=== PATIENT | male | born 1945 | race Caucasian/White ===

== ENCOUNTER 2021-02-24 13:46 | Emergency (ER) | payer MEDICARE, BC ==
[~2021-02-24] VITALS: Ht 165.1 cm; Wt 123.7 kg
[2021-02-24 13:47] VITALS: BP 0/0
--- NOTE | 2021-02-24 13:58 | PHYS DOC ---
Adult General Chief Complaint Chief Complaint: CPR/FULL ARREST HPI HPI Patient is a 75-year-old male presenting for cardiac arrest via EMS. Medical history is unknown. Patient was reportedly at [facility] and suffered a witnessed cardiac arrest. CPR was started by by standards and EMS was called and on scene and less than 10 minutes. Tony CPR machine applied after cardiac rhythm analyzed showing asystole, no pulses were present and so, Tony machine chest compressions were started and patient rushed emergently to our ER for evaluation. We had no known history on the patient, he was not with any family members or individuals who know anything about his past medical history nor CODE STATUS Review of Systems Review of Systems Unobtainable due to ongoing CPR in progress Physical Exam Physical Exam Constitutional: Ill-appearing with CPR in Tony machine placed on chest actively applying chest compressions HEENT: Head: Normocephalic and atraumatic. TMs clear, no hemotympanum Conjunctivae normal. Pupils are equal, round, with minimal reactivity to light Oropharynx is clear and dry, LMA in place No hematomas or lacerations or abrasions to face or scalp OP clear, no blood, no malocclusion, dentition intact Nares clear, no nasal septal hematoma Midface stable Neck: C-spine midline without palpable abnormalities or step-offs Cardiovascular: Asystole, Tony CPR machine in place in adequate position actively applying chest compressions on arrival, no flail chest Pulmonary/Chest: Mechanical breath sounds present, crackles diffusely with rales present in bilateral lung lobes Abdominal: Soft. Bowel sounds are normal. Pt exhibits no distension. There is no obvious tenderness. Musculoskeletal: No bony tenderness to extremities, no obvious visible nor palpable deformities, passive range of motion of extremities intact with no purposeful movements noted Chest wall stable Pelvis stable No vertebral spine visible or palpable stepoffs or other noted abnormalities Neurological: Unable to fully assess, GCS 3, LMA in place without sedation No purposeful movements No pupillary reflex As mention, pupils equal but minimally responsive to light Minimal response with painful stimulation to soles of feet Skin: Skin is cold and dry. No abrasions, no lacerations Psychiatric: Unable to accurately assess Current Patient Data Vital Signs Vital Signs Date Time Temp Pulse Resp B/P (MAP) Pulse Ox O2 Delivery O2 Flow Rate FiO2 02/24/21 13:47 97.2 0 12 0/0 (0) Bag Valve Mask 02/24/21 15:56 100 Vital Signs Date Time Temp Pulse Resp B/P (MAP) Pulse Ox O2 Delivery O2 Flow Rate FiO2 02/24/21 15:56 100 02/24/21 13:47 97.2 0 12 0/0 (0) Bag Valve Mask Lab Results Laboratory Tests Test 02/24/21 13:54 Glucose (Fingerstick) 106 mg/dL (70-99) H EKG EKG EKG obtained after ROSC and interpreted by myself at 1453 hrs. as supraventricular rhythm with a rate 87, prolonged QRS at 126, prolonged QTC at 501, left axis deviation, Q waves present in leads III and aVF consistent with prior inferior wall infarct, no STEMI Radiology/Procedures Radiology/Procedures AP chest x-ray HISTORY: Cardiac arrest with return of spontaneous circulation. FINDINGS: Marked cardiomegaly versus presence of a pericardial effusion. Calcified plaque aortic arch and tortuosity. No pneumothorax. Diffuse pulmonary interstitial and alveolar infiltrates likely edema and prominence of the pulmonary vasculature from congestion. IMPRESSION: Marked cardiomegaly versus presence of a large pericardial effusion. Pulmonary vascular congestion and pulmonary edema. No pneumothorax. Electronically signed by: Yonny Asencio MD (02/24/2021 3:11 PM) [id number] ///////////////////// AP chest x-ray COMPARISON: Chest x-ray February 24, 2021. HISTORY: Status post intubation for respiratory failure and recent cardiac arrest. FINDINGS: Endotracheal tube extends past the vidhi 2 cm into the right mainstem bronchus should be withdrawn 4 cm of the distal trachea. Cardiomegaly stable. Aortic arch calcified plaque again noted. Mild improved aeration with decreased infiltrates. No pneumothorax. No pleural effusions. IMPRESSION: Mild improvement of the pulmonary infiltrates. Endotracheal intubation, endotracheal tube passes into the right mainstem bronchus 2 cm distal of the vidhi, the tube should be withdrawn 4 cm for the tip to terminate at the trachea for optimal ventilation. ///////////////// Exam: Chest one view INDICATION: CPR, IJ placement attempt TECHNIQUE: Frontal view of the chest Comparisons: 02/24/2021 FINDINGS: Endotracheal tube with tip approximately 1 cm above the vidhi. Enteric tube traverses below the diaphragm distal extent not visualized. Heart is mildly enlarged. Pulmonary vessels are within normal limits. Mild hazy opacity lung bases bilaterally appear. No pleural effusion. IMPRESSION: Lines and tubes described above. No pneumothorax. Electronically signed by: Carole Matos MD (02/24/2021 5:35 PM) [facility] Heart Score C/O Chest Pain: N/A HEART Score for Chest Pain: HEART Score for Chest Pain Response (Comments) Value History Highly Suspicious 2 ECG Nonspecific Repolarizatio 1 Age > 65 2 Risk Factors >3 Risk Factors or Hx CAD 2 Troponin >3 x Normal Limit 2 Total 9 Risk Factors: Risk Factors: DM, Current or recent (<one month) smoker, HTN, HLP, family history of CAD, obesity. Risk Scores: Risk Factors: DM, Current or recent (<one month) smoker, HTN, HLP, family history of CAD, obesity. Course & Med Decision Making Course & Med Decision Making Patient pulseless on arrival with asystole on immediate pulse check, CPR ensued Large bore peripheral IV access x2 and x2 tibial IO obtained. Calcium, sodium bicarb, and epinephrine administered with subsequent 1 L IV fluid bolus Please review code sheet for official record of the events. Patient was found on subsequent pulse check to be in pulseless V. tach, a 200 J unsynchronized defibrillation improved rhythm to a supraventricular rhythm with pulses present Patient had issues with blood pressure and heart rate, subsequent pushes of epinephrine and short time being paced were required. Patient did become pulseless and arrest 2 additional times while in ER ROSC was finally obtained, epinephrine drip started with improvement of hemodynamic status. Decision made to exchange LMA for ETT. This was performed by myself on first attempt without complications and under 20 seconds. Repeat chest x-ray unremarkable Bedside ultrasound performed and unremarkable for pericardial effusion. Subsequent ER work-up obtained, [place] catheter placed X2 attempts were made to place a central venous line, patient had x2 attempts to right femoral vein both ending up and kinked guidewires and catheters placed in unsatisfactory position. Hemostasis achieved with direct pressure without any obvious abnormalities noted X1 attempt to place a central venous line in right internal jugular performed but called off due to morbid condition of patient and difficulty definitively finding and cannulating vein with certainty. Repeat chest x-ray obtained showing no pneumothorax Contact was finally made with patient son whom patient lives with. He provided a wealth of past medical history. Patient has numerous comorbid conditions such as type 2 diabetes mellitus, history of CVA, hypertension, hypercholesterol and alcohol dependence drinking 1 pint of vodka daily Son was not with father at time of cardiac collapse at [facility]. He is unsure of last alcoholic drink but thinks it was last prior. He reports patient has had increased shortness of breath over past month and was scheduled to see PCP whom he had not seen in months this upcoming week Also reports for past x3 days father has been having visual hallucinations. Son reports that patient has had diagnosis of "alcohol induced dementia" I reviewed entirety of ER work-up, findings and interventions so far. Son understands critical situation and poor prognosis. He understands amount of time patient spent anoxic and in asystole that has poor prognosis for meaningful recovery. Son wants him to be DNR status I discussed my failed attempts at placing a central venous line, son does not want any more invasive interventions such as central line access at this time. He is amenable for transfer to [facility] ICU for higher acuity of care I contacted hospitalist and discussed need for transfer, Dr. Lopez accepted patient under his care and agreed to current work-up and plan of care going forward. Patient son updated on acceptance for transfer to [facility]. All questions and concerns addressed prior to transport Prior to hospital transfer, pulm/crit care services discussed potential need for CTA chest prior to transfer to evaluate suspect pericardial effusion and need fo r emergent cath/surgical intervention. I discussed my bedside ultrasound finding negative for significant fluid and decision was made to defer until transfer to accepting facility for this to be performed in urgent but not emergent fashion. Decision for antibiotics will be determined on arrival to transferring facility. No COVID-19 contacts or concerns per son and so, this patient was not swabbed Critical Care Time This patient required critical care. Due to the fact that the patient required a significant amount of one on one physician - patient contact time, ordering and review of studies, arranging urgent treatment with development of a management plan, evaluation of patients response to treatment with frequent reassessments, and discussions with other providers this patient required 90 minutes of critical care time. Critical care time was indicated due to the inherent insta bility and/or potential for instability in this patient. The critical care time that is allocated to this patient is above and beyond any time spent on any other billable procedures performed on this patient. Dragon Disclaimer Dragon Disclaimer This electronic medical record was generated, in whole or in part, using a voice recognition dictation system. Central Line Central Line : Central Line Lumen: triple Central Line Procedure: sterile drapes applied Central Line Postion: internal jugular (R), femoral (R) Complications: Unsuccessful Progress Patient had x2 attempts at placing right femoral central venous line that was ultrasound-guided. Area was draped in sterile procedure and adequate sterile technique performed. Patient was prepped adequately, draped and using sterile ultrasound right femoral central vein identified, vein was cannulated and Salinger technique was performed. Nonetheless, when attempting to slide central venous catheter to complete procedure, guidewire had coiled on x2 attempts. Thus, after second attempt, decision was made to terminate repeat attempts at site. Hemostasis achieved in less than 1 minute with direct pressure. No obvious abnormalities such as hematoma, crepitus or ongoing bleeding noted Decision was subsequently made to perform x1 attempt at placing right internal jugular central venous line using ultrasound. As mentioned above, sterile technique was ensured with adequate prep and draping of patient. Difficulty was had visualizing and adequately cannulating internal jugular vein due to morbid condition of patient. X3 sticks were attempted under ultrasound guidance without successful cannulation of right internal jugular vein. Decision was made to abort procedure to prevent further harm to patient. Repeat chest x-ray performed after attempt to ensure no pneumothorax, unremarkable chest x-ray interpreted by myself and radiologist showing no pneumothorax Intubation Intubation : Intubation Method: orotracheal Tube Size (cm): 7.5 Breath Sounds after Intubation: equal Intubation Complications: no complications Post Intubation Xray: Yes Progress Decision was made to switch from LMA to definitive airway. Appropriate preintubation protocol followed. LMA removed, superior dentures removed and a MAC 4 blade was used to visualize vocal cords. A 7.5 ETT was seen successfully passing through the vocal cords on first attempt. ETT cuff inflated, positive color change on CO2, adequate end-tidal CO2, chest auscultated with bilateral breath sounds and chest rise, postprocedural chest x-ray obtained showing slightly deep placement of ETT likely due to adjustment made obtaining chest x- ray. Recommendations of r radiologist followed and ETT withdrawn 4 cm into satisfactory position Departure Departure: Impression: Primary Impression: Cardiac arrest Additional Impressions: AIDA (acute kidney injury) Hyperkalemia Pulmonary edema EtOH dependence History of CVA (cerebrovascular accident) History of diabetes mellitus Disposition: 02 SHORT TERM HOSPITAL ([facility]) Admitting Physician: Will Lopez Condition: GUARDED Problem Qualifiers TAMIKA ALVAREZ DO February 24, 2021 13:58
[2021-02-24 14:07] LABS: BASO % 0 % (0-3); EOS % 0 % (0-3); HEMATOCRIT 39.4 % (39.0-53.0); HEMOGLOBIN 12.2 g/dL (13.0-17.5); LYMPH # 2.5 x10^3/uL (1.0-4.8); LYMPH % 18 % (24-48); MEAN CORPUSCULAR HEMOGLOBIN 31 pg (25-35); MEAN CORPUSCULAR HGB CONC 31 g/dL (31-37); MEAN CORPUSCULAR VOLUME 100 fL (79-100); MONO # 1.4 x10^3/uL (0.0-1.1); MONO % 10 % (0-9); NEUT # 9.5 x10^3uL (1.8-7.7); NEUT % 71 % (31-73); PLATELET COUNT 143 x10^3/uL (140-400); RED BLOOD COUNT 3.95 x10^6/uL (4.30-5.70); RED CELL DISTRIBUTION WIDTH 17.5 % (11.5-14.5); WHITE BLOOD COUNT 13.4 x10^3/uL (4.0-11.0)
[2021-02-24 14:17] LABS: ACETAMIN < 2 mcg/mL (10-30); SALIC < 2.8 mg/dL (2.8-20.0)
[2021-02-24 14:18] LABS: ETHANOL < 10 mg/dL (0-10)
[2021-02-24 14:31] LABS: % EOS 1 % (0-5); % LYMPHS 29 % (24-48); % METAS 3 % (0-0); % MONOS 8 % (0-10); % SEGS 59 % (35-66); PLT ESTIMATE ADEQUATE (ADEQUATE)
--- NOTE | 2021-02-24 15:13 | RAD ---
AP chest x-ray HISTORY: Cardiac arrest with return of spontaneous circulation. FINDINGS: Marked cardiomegaly versus presence of a pericardial effusion. Calcified plaque aortic arch and tortuosity. No pneumothorax. Diffuse pulmonary interstitial and alveolar infiltrates likely dotty a and prominence of the pulmonary vasculature from congestion. IMPRESSION: Marked cardiomegaly versus presence of a large pericardial effusion. Pulmonary vascular c ongestion and pulmonary edema. No pneumothorax. Electronically signed by: Yonny Asencio MD (02/24/2021 3:11 PM) [id number]
[2021-02-24 15:14] LABS: ALBUMIN 2.6 g/dL (3.4-5.0); ALBUMIN/GLOBULIN RATIO 0.8 (1.0-1.7); CALCIUM 8.4 mg/dL (8.5-10.1); CREATININE 2.7 mg/dL (0.7-1.3); MAGNESIUM 2.2 mg/dL (1.8-2.4); TOTAL BILIRUBIN 2.8 mg/dL (0.2-1.0); TOTAL PROTEIN 5.9 g/dL (6.4-8.2)
[2021-02-24 15:49] LABS: BGAS PH 7.08 (7.35-7.46)
[2021-02-24] MEDS ORDERED: CALCIUM CHLORIDE 1,000 MG/10 ML VIAL IV ONE (16:00)
[2021-02-24] MEDS ORDERED: SODIUM BICARB ADULT 8.4% 50 MEQ/50 ML DISP.SYRIN. ONE (16:00)
[2021-02-24] MEDS ORDERED: EPINEPHrine SYRINGE 1 MG/10 ML SYRINGE ONE (16:00)
--- NOTE | 2021-02-24 16:02 | RAD ---
AP chest x-ray COMPARISON: Chest x-ray February 24, 2021. HISTORY: Status post intubation for respiratory failure and recent cardiac arrest. FINDINGS: Endotracheal tube extends past the vidhi 2 cm into the right mainstem bronchus should be w ithdrawn 4 cm of the distal trachea. Cardiomegaly stable. Aortic arch calcified plaque again noted. M ild improved aeration with decreased infiltrates. No pneumothorax. No pleural effusions. IMPRESSION: Mild improvement of the pulmonary infiltrates. Endotracheal intubation, endotracheal tube passes into the right mainstem bronchus 2 cm distal of the vidhi, the tube should be withdrawn 4 cm for the tip to terminate at the trachea for optimal ventilation. FOR INTERNAL CODING PURPOSES Critical result: Findings discussed with Dr. Rubin at 02/24/2021 3:57 PM. RESULT CODE: (C) Electronically signed by: Yonny Asencio MD (02/24/2021 3:59 PM) [id number]
[2021-02-24] MEDS ORDERED: INSULIN REGULAR 100 UNIT/ML 3ML VIAL. IV ONE (16:15)
[2021-02-24] MEDS ORDERED: DEXTROSE 50% 25 GM / 50ML DISP.SYRIN. IV ONE (16:15)
--- NOTE | 2021-02-24 16:20 | EKG ---
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
--- NOTE | 2021-02-24 17:38 | RAD ---
Exam: Chest one view INDICATION: CPR, IJ placement attempt TECHNIQUE: Frontal view of the chest Comparisons: 02/24/2021 FINDINGS: Endotracheal tube with tip approximately 1 cm above the vidhi. Enteric tube traverses below the diap hragm distal extent not visualized. Heart is mildly enlarged. Pulmonary vessels are within normal limits. Mild hazy opacity lung bases bilaterally appear. No pleural effusion. IMPRESSION: Lines and tubes described above. No pneumothorax. Electronically signed by: Carole Matos MD (02/24/2021 5:35 PM) DARRYL
[2021-02-24] MEDS ORDERED: MIDAZOLAM HCL 50 MG in IV NORMAL SALINE 50ML 50 ML IV ONE (17:45)
[2021-02-24] MEDS ORDERED: NOREPINEPHRINE BITARTRATE 8 MG in IV DEXTROSE 5% 250 ML IV PRN (17:45)
[2021-02-24] MEDS ORDERED: EPINEPHrine 5 MG in IV NORMAL SALINE 250ML 250 ML IV PRN (17:45)
--- NOTE | 2021-02-24 18:34 | RAD ---
XR CHEST 1V Clinical Indication: Reason: cpr /AP chest, Comparison: AP chest, Earlier same day. Findings: Endotracheal tube tip is approximately 1 cm superior to the vidhi. Enteric tube courses below left h emidiaphragm. Atherosclerotic aortic arch. Stable cardiac enlargement. Bilateral perihilar airspace o pacities are unchanged. There is no pneumothorax. No pleural effusion is appreciated. No acute bone a bnormality. IMPRESSION: 1. Life support devices as above. 2. Bilateral perihilar airspace opacities are unchanged. Electronically signed by: Dorian Escalona MD (02/24/2021 6:31 PM) [facility]
[2021-02-24] MEDS ORDERED: IV NORMAL SALINE 50ML 50 ML ONE (19:34)
[2021-02-24] MEDS ORDERED: IV NORMAL SALINE 250ML 250 ML ONE (19:34)
[2021-02-24] MEDS ORDERED: IV DEXTROSE 5% 250 ML IV ONE (19:36)
[2021-02-24] MEDS ORDERED: FUROSEMIDE 100 MG/10 ML VIAL IVP ONE (19:45)
[2021-02-24] MEDS ORDERED: MIDAZOLAM HCL PF 5 MG/5 ML VIAL. IV ONE (20:00)
[2021-02-24] MEDS ORDERED: FAMOTIDINE 20 MG/2 ML VIAL IVP SCH (21:00)
== END 2021-02-24 19:10 | disposition short-term general hospital (02) ==
LOC: ER 13:46
DX: I46.9 Cardiac arrest, cause unspecified (principal); N17.9 Acute kidney failure, unspecified; E87.5 Hyperkalemia; J81.1 Chronic pulmonary edema; F10.20 Alcohol dependence, uncomplicated; Z86.73 Personal history of transient ischemic attack (TIA), and cerebral infarction without residual deficits; Y90.8 Blood alcohol level of 240 mg/100 ml or more
CPT/HCPCS: 31500; 36415; 36556; 71045; 80053; 80329; 82803; 82947; 83735; 83880; 84443; 84484; 85007; 85025; 85610; 85730; 92950; 93005; 96374; 96375; 99291; 99292; G0480; J0171; J1815; J2250; 94002